=== PATIENT | male | born 1995 | race Caucasian/White ===

== ENCOUNTER 2016-05-31 13:39 | Emergency (ER) | payer SELFPAY ==
[~2016-05-31] VITALS: Ht 185.4 cm; Wt 64.2 kg
[2016-05-31 13:50] VITALS: BP 122/75
== END 2016-05-31 15:09 | disposition home or self-care (01) ==
LOC: ED 13:39
DX: J02.8 Acute pharyngitis due to other specified organisms (principal)

== ENCOUNTER 2017-02-25 13:36 | Emergency (ER) | payer MEDICAID ==
[~2017-02-25] VITALS: Ht 185.4 cm; Wt 62.6 kg
[2017-02-25 14:00] VITALS: Ht 185.4 cm; Wt 62.6 kg
[2017-02-25 15:58] VITALS: BP 111/76
== END 2017-02-25 15:58 | disposition home or self-care (01) ==
LOC: ED 13:36
DX: R07.9 Chest pain, unspecified (principal); F12.10 Cannabis abuse, uncomplicated; F14.10 Cocaine abuse, uncomplicated

== ENCOUNTER 2019-07-02 13:09 | Emergency (ER) | payer MEDICAID ==
[~2019-07-02] VITALS: Ht 185.4 cm; Wt 71.7 kg
[2019-07-02 13:14] VITALS: Ht 185.4 cm; Wt 71.7 kg
[2019-07-02 13:49] VITALS: BP 126/86
== END 2019-07-02 13:49 | disposition home or self-care (01) ==
LOC: ED 13:09
DX: R51 Headache (principal); M79.10 Myalgia, unspecified site; R68.83 Chills (without fever); Z20.828 Contact with and (suspected) exposure to other viral communicable diseases
CPT/HCPCS: U0003-CS

== ENCOUNTER 2019-08-16 09:51 | Emergency (ER) | payer MEDICAID, SELFPAY ==
[~2019-08-16] VITALS: Ht 167.6 cm; Wt 74.8 kg
[2019-08-16 12:05] VITALS: Ht 167.6 cm; Wt 74.8 kg
[2019-08-16 12:30] VITALS: BP 115/58
== END 2019-08-16 12:38 | disposition home or self-care (01) ==
LOC: ED 09:51
DX: U07.1 COVID-19 (principal)
CPT/HCPCS: U0003-CS